=== PATIENT | female | born 1975 | race Caucasian/White ===

== ENCOUNTER 2016-11-09 11:18 | Emergency (ER) | payer MEDICARE, MEDICAID ==
[2016-11-09] MEDS ORDERED: Ketorolac Tromethamine 60 MG/2 ML VIAL ONE (12:16)
[2016-11-09] MEDS ORDERED: HYDROcodone/Acetaminophen 10/325 mg Tablet ONE (12:16)
[2016-11-09] MEDS ORDERED: Dexamethasone 4 MG TAB ONE (12:16)
[2016-11-09] MEDS ORDERED: Diazepam 5 MG TAB ONE (12:16)
== END 2016-11-09 12:10 | disposition home or self-care (01) ==
LOC: MADERS 11:18
DX: M62.830 Muscle spasm of back (principal); E11.9 Type 2 diabetes mellitus without complications; J44.9 Chronic obstructive pulmonary disease, unspecified; F41.9 Anxiety disorder, unspecified; F31.9 Bipolar disorder, unspecified; F17.210 Nicotine dependence, cigarettes, uncomplicated; W18.30XA Fall on same level, unspecified, initial encounter
CPT/HCPCS: 99283; J1885; J8540

== ENCOUNTER 2019-01-09 12:21 | Outpatient (CLI) | payer MEDICARE, MEDICAID ==
--- NOTE | 2019-01-09 12:58 | RAD ---
RIGHT FOOT THREE VIEWS: 01/09/2019 HISTORY: Foot infection. COMPARISON: None. FINDINGS: There is prominent degenerative change at the first metatarsophalangeal joint. There is no displaced fracture or evidence of dislocation seen. There is plantar soft tissue swelling near the first metata rsophalangeal joint with probable skin ulceration noted on the lateral examination. There is enthesop hyte formation at the origin of the plantar aponeurosis and insertion of the Achilles tendon. There i s dorsal degenerative change involving the mid foot. IMPRESSION: Soft tissue swelling and probable ulceration involving the plantar aspect of the foot near the first metatarsophalangeal joint. No osseous destruction. If there is clinical concern for osteomyelitis MRI advised. POS: EP[facility]IO
== END 2019-01-09 12:22 | disposition home or self-care (01) ==
LOC: MADRAD 12:21
PROVIDERS: ATTEND Physician Assistant
DX: L08.9 Local infection of the skin and subcutaneous tissue, unspecified (principal); M79.89 Other specified soft tissue disorders

== ENCOUNTER 2019-04-13 20:19 | Emergency (ER) | payer MEDICARE, MEDICAID ==
[2019-04-13] MEDS ORDERED: Morphine 4 MG/ML VIAL ONE ×3 (20:47→23:39)
[2019-04-13 21:25] LABS: #Basophils 0.1 thou/uL (0.0-0.2); #Eosinphils 0.3 thou/uL (0.0-0.7); #Monocytes 0.8 thou/uL (0.11-0.59); #Neutrophils 9.9 thou/uL (1.40-6.50); %Basophils 0.6 % (0.0-1.0); %Eosinophils 1.6 % (0.0-10.0); %Lymphocytes 31.3 % (21.0-51.0); %Monocytes 4.9 % (0.0-10.0); %Neutrophils 61.7 % (42.0-75.0); Hemoglobin 11.7 g/dL (12.0-16.0); Mean Corpuscular HGB CONC 31.8 g/dL (32.0-36.0); Mean Corpuscular Hemoglobin 29.4 pg (27.0-31.0); Mean Corpuscular Volume 92.4 fL (78.0-98.0); Mean Platelet Volume 7.3 fL (7.4-10.4); Platelet Count 385 thou/uL (130-400); RBC Distribution Width 14.4 % (11.5-14.5); White Blood Cell (WBC) Count 16.1 thou/uL (4.8-10.8)
[2019-04-13 21:33] LABS: INR-International Normal Ratio 0.9; PTT 29.2 SEC (22.9-36.1); Prothrombin Time 12.2 SEC (12.0-14.7)
[2019-04-13 21:43] LABS: ALT (SGPT) 19 U/L (8-55); AST (SGOT) 15 U/L (5-34); Alkaline Phosphatase 95 U/L (40-110); Anion Gap 16 mmol/L (10-20); BUN (Urea Nitrogen) 15 mg/dL (7.0-18.7); Bilirubin, Total 0.3 mg/dL (0.2-1.2); Calc. Creatinine Clearance 0 mL/min (70-130); Calcium 9.5 mg/dL (7.8-10.44); Carbon Dioxide 24 mmol/L (22-29); Chloride 102 mmol/L (98-107); Estimated GFR-MDRD 66; Globulin 3.5 g/dL (2.4-3.5); Glucose 111 mg/dL (70-105); Potassium 4.4 mmol/L (3.5-5.1); Protein, Total 7.5 g/dL (6.0-8.3); Sodium 138 mmol/L (136-145)
[2019-04-13] MEDS ORDERED: Sodium Chloride 0.9% 1,000 ML ONE (22:10)
== END 2019-04-13 23:45 | disposition short-term general hospital (02) ==
LOC: MADERS 20:19
DX: M96.830 Postprocedural hemorrhage of a musculoskeletal structure following a musculoskeletal system procedure (principal); I10 Essential (primary) hypertension; E11.9 Type 2 diabetes mellitus without complications; J44.9 Chronic obstructive pulmonary disease, unspecified; F31.9 Bipolar disorder, unspecified; F41.9 Anxiety disorder, unspecified; F32.9 Major depressive disorder, single episode, unspecified; F17.210 Nicotine dependence, cigarettes, uncomplicated; Z79.899 Other long term (current) drug therapy; Z79.4 Long term (current) use of insulin
CPT/HCPCS: 80053; 85025; 85610; 85730; 96361; 96374; 96376; J2270; J7050